=== PATIENT | male | born 1985 | race Caucasian/White ===

== ENCOUNTER 2018-12-08 14:16 | Emergency (ER) | payer OTHER ==
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
[2018-12-08 17:11] VITALS: BP 117/76
[2018-12-08] MEDS ORDERED: Ketorolac INJ* 30 MG/ML 1 ML VIAL IM ONE (17:23)
== END 2018-12-08 17:51 | disposition home or self-care (01) ==
LOC: UCCORT 14:16
DX: S29.9XXA Unspecified injury of thorax, initial encounter (principal); V86.56XA Driver of dirt bike or motor/cross bike injured in nontraffic accident, initial encounter; Y92.9 Unspecified place or not applicable
CPT/HCPCS: 70450; 71250; 72125; 74176; 81003; 96372; 99202; G0463; J1885